=== PATIENT | male | born 1955 | race African-American/Black ===

== ENCOUNTER 2018-07-17 23:02 | Emergency (ER) | payer OTHER, MEDICARE ==
[~2018-07-17] VITALS: Ht 167.6 cm; Wt 62.1 kg
[~2018-07-17 23:02] MED LIST: FERR325T14 PO; OXYC-323 PO
[2018-07-17] MEDS ORDERED: CONTRAST GIVEN. MC PRN (23:45)
[2018-07-17 23:50] LABS: BASO % 0 % (0-3); EOS # 0.1 x10^3/uL (0.0-0.7); EOS % 2 % (0-3); HEMATOCRIT 29.1 % (39.0-53.0); HEMOGLOBIN 9.4 g/dL (13.0-17.5); LYMPH # 0.3 x10^3/uL (1.0-4.8); LYMPH % 8 % (24-48); MEAN CORPUSCULAR HEMOGLOBIN 24 pg (25-35); MEAN CORPUSCULAR HGB CONC 32 g/dL (31-37); MEAN CORPUSCULAR VOLUME 74 fL (79-100); MONO # 0.3 x10^3/uL (0.0-1.1); MONO % 7 % (0-9); NEUT # 3.7 x10^3uL (1.8-7.7); NEUT % 83 % (31-73); PLATELET COUNT 198 x10^3/uL (140-400); RED BLOOD COUNT 3.93 x10^6/uL (4.30-5.70); RED CELL DISTRIBUTION WIDTH 19.1 % (11.5-14.5); WHITE BLOOD COUNT 4.5 x10^3/uL (4.0-11.0)
[2018-07-17 23:59] LABS: PROTHROMBIN TIME PATIENT 14.8 SEC (11.7-14.0)
[2018-07-18] LABS: CALCIUM 10.1 mg/dL (8.5-10.1); CREATININE 1.1 mg/dL (0.7-1.3); GFR 81.3; POTASSIUM 3.8 mmol/L (3.5-5.1)
[2018-07-18] MEDS ORDERED: FAMOTIDINE 20 MG/2 ML VIAL IVP ONE
[2018-07-18 00:06] LABS: ALBUMIN 3.6 g/dL (3.4-5.0); ALBUMIN/GLOBULIN RATIO 0.7 (1.0-1.7); MAGNESIUM 1.7 mg/dL (1.8-2.4); TOTAL BILIRUBIN 0.4 mg/dL (0.2-1.0); TOTAL PROTEIN 8.6 g/dL (6.4-8.2)
[2018-07-18 00:21] LABS: BILIRUBIN,URINE NEGATIVE (NEG); CLARITY,URINE CLEAR; COLOR,URINE YELLOW; NITRITE,URINE NEGATIVE (NEG); PH,URINE 6.5; PROTEIN,URINE 30 mg/dL (NEG-TRACE)
[2018-07-18] MEDS ORDERED: IOHEXOL 300 MG/ML 100ML VIAL. IV ONE (00:30)
[2018-07-18] MEDS ORDERED: IOHEXOL 240 MG/ML 50ML VIAL. PO ONE (00:30)
[2018-07-18] MEDS ORDERED: IV NORMAL SALINE 1000ML BAG 1,000 ML IV ONE (00:30)
[2018-07-18 00:32] LABS: BACTERIA,URINE MODERATE /HPF (0-FEW); RBC,URINE TNTC /HPF (0-2); SQUAMOUS EPITHELIAL CELL,UR FEW /LPF
--- NOTE | 2018-07-18 00:59 | EKG ---
[facility] [address] [place] [address] Test Date: 2018-07-17 Test Time: 23:52:12 Pat Name: MILLA WRGIHT Department: Room: Gender: M [employer]: : [id number] Requested By: TON JOHNSON Order Number: [id number] Reading MD: Measurements Intervals [place] Rate: 71 P: 74 IN: 134 QRS: 5 QRSD: 84 T: 32 QT: 352 QTc: 386 Interpretive Statements SINUS RHYTHM NORMAL ECG No previous ECG available for comparison
[2018-07-18 01:19] LABS: % BANDS 1 % (0-9); % EOS 3 % (0-5); % LYMPHS 10 % (24-48); % MONOS 4 % (0-10); % SEGS 82 % (35-66)
[2018-07-18 01:20] LABS: HYPOCHROMIA SLIGHT; PLT ESTIMATE ADEQUATE (ADEQUATE)
[2018-07-18 01:21] LABS: MICROCYTOSIS MOD; POIKILOCYTOSIS SLIGHT
[2018-07-18 01:22] LABS: HELMET CELLS OCC; OVALOCYTES OCC; SCHISTOCYTES OCC; TOXIC VACUOLATION SLIGHT
--- NOTE | 2018-07-18 02:19 | RAD ---
EXAM: CT Abdomen and Pelvis with IV contrast CLINICAL HISTORY: ABDOMEN PAIN, HX OF COLON CA, RECEIVING RADIATION COMPARISON: CT abdomen 06/01/2018 TECHNIQUE: Helical CT of the abdomen and pelvis was performed following the administration of intravenous contrast. Oral contrast was administered. Axial, coronal and sagittal reformatted images were generated. PQRS compliance statement - One or more of the following individualized dose reduction techniques were utilized for this study: 1. Automated exposure control 2. Adjustment of the mA and/or kV according to patient size 3. Use of iterative reconstruction technique FINDINGS: Lower chest: Numerous lung nodules are seen in the lung bases consistent with metastatic disease. Abdomen and Pelvis: A 5 mm right hepatic lobe (series 2 image 23) hypodense lesion was not definitively seen on the prior exam, recommend close attention on follow-up. A 1 cm left hepatic lobe hypodense lesion is stable. Calcified granulomas are seen within the spleen. Adrenal glands are not well visualized given lack of adjacent mesenteric fat. The right kidney is small with moderate to large hydronephrosis and hydroureter, stable. Mild left hydronephrosis and hydroureter. The distended bladder is otherwise unremarkable. Multiple left renal cystic lesions are seen. No abnormal small or large bowel dilatation. Large volume colonic stool content is seen. A ventral abdominal ostomy is again seen. Trace presacral edema. Aorta is normal in caliber. IVC filter is seen. Evaluation for lymphadenopathy is limited given lack of visceral fat. Bones: Degenerative change of the spine are noted. Old fracture deformity of the left pubic body. IMPRESSION: 1. Changes of prior colonic resection with ostomy are seen. 2. Moderate to large volume hydronephrosis and hydroureter of the right kidney with atrophic appearance of the right kidney. 3. There is mild left hydronephrosis/hydroureter. 4. Hypodense hepatic lesions are seen, too small to accurately characterize. Recommend close attention on follow-up. 5. Evaluation for lymphadenopathy is limited given lack of visceral fat. Electronically signed by: Kian Ovalle MD (07/18/2018 2:16 AM) [facility]
[2018-07-18] MEDS ORDERED: CEPH-264 PO (02:42)
[2018-07-18] MEDS ORDERED: MAGN296S9 PO (02:42)
[2018-07-18] MEDS ORDERED: SENN-121 PO (02:42)
--- NOTE | 2018-07-18 02:42 | PHYS DOC ---
Past Medical History Past Medical History: Cancer Additional Past Medical Histor: COLON CANCER Past Surgical History: Other Additional Past Surgical Histo: COLON CANCER, BILATERAL KNEE Alcohol Use: None Drug Use: None Adult General Chief Complaint Chief Complaint: CONSTIPATION HPI HPI Patient is a 63 year old [f__sex] who presents with [] Review of Systems Review of Systems Constitutional: Denies fever or chills [] Eyes: Denies change in visual acuity, redness, or eye pain [] HENT: Denies nasal congestion or sore throat [] Respiratory: Denies cough or shortness of breath [] Cardiovascular: No additional information not addressed in HPI [] GI: Denies abdominal pain, nausea, vomiting, bloody stools or diarrhea [] : Denies dysuria or hematuria [] Musculoskeletal: Denies back pain or joint pain [] Integument: Denies rash or skin lesions [] Neurologic: Denies headache, focal weakness or sensory changes [] Endocrine: Denies polyuria or polydipsia [] All other systems were reviewed and found to be within normal limits, except as documented in this note. Current Medications Current Medications Current Medications Medications (Trade) Dose Ordered Sig/Flaco Start Time Stop Time Status Last Admin Dose Admin Ceftriaxone Sodium 50 ml @ 100 mls/hr 1X ONCE 07/18/18 02:00 07/18/18 02:29 DC 07/18/18 02:08 100 MLS/HR Famotidine (Pepcid Vial) 20 mg 1X ONCE 07/18/18 00:00 07/18/18 00:01 DC 07/18/18 00:08 20 MG Info (CONTRAST GIVEN -- Rx MONITORING) 1 each PRN DAILY PRN 07/17/18 23:45 07/19/18 23:44 Iohexol (Omnipaque 240 Mg/ml) 50 ml 1X ONCE 07/18/18 00:30 07/18/18 00:31 DC 07/18/18 01:01 50 ML Iohexol (Omnipaque 300 Mg/ml) 75 ml 1X ONCE 07/18/18 00:30 07/18/18 00:31 DC 07/18/18 01:01 75 ML Sodium Chloride 1,000 ml @ 1,000 mls/hr 1X ONCE 07/18/18 00:30 07/18/18 01:29 DC 07/18/18 00:08 1,000 MLS/HR Allergies Allergies Allergies Coded Allergies Type Severity Reaction Last Updated Verified No Known Drug Allergies 07/17/18 No Physical Exam Physical Exam Constitutional: Well developed, well nourished, no acute distress, non-toxic appearance. [] HENT: Normocephalic, atraumatic, bilateral external ears normal, oropharynx moist, no oral exudates, nose normal. [] Eyes: PERRLA, EOMI, conjunctiva normal, no discharge. [] Neck: Normal range of motion, no tenderness, supple, no stridor. [] Cardiovascular:Heart rate regular rhythm, no murmur [] Lungs & Thorax: Bilateral breath sounds clear to auscultation [] Abdomen: Bowel sounds normal, soft, no tenderness, no masses, no pulsatile masses. [] Skin: Warm, dry, no erythema, no rash. [] Back: No tenderness, no CVA tenderness. [] Extremities: No tenderness, no cyanosis, no clubbing, ROM intact, no edema. [] Neurologic: Alert and oriented X 3, normal motor function, normal sensory function, no focal deficits noted. [] Psychologic: Affect normal, judgement normal, mood normal. [] Current Patient Data Vital Signs Vital Signs Date Time Temp Pulse Resp B/P (MAP) Pulse Ox O2 Delivery O2 Flow Rate FiO2 07/17/18 23:18 98.3 82 16 174/73 (106) 99 Room Air 98.3 Lab Values Laboratory Tests Test 07/17/18 23:34 07/18/18 00:05 White Blood Count 4.5 x10^3/uL (4.0-11.0) Red Blood Count 3.93 x10^6/uL (4.30-5.70) L Hemoglobin 9.4 g/dL (13.0-17.5) L Hematocrit 29.1 % (39.0-53.0) L Mean Corpuscular Volume 74 fL (79-100) L Mean Corpuscular Hemoglobin 24 pg (25-35) L Mean Corpuscular Hemoglobin Concent 32 g/dL (31-37) Red Cell Distribution Width 19.1 % (11.5-14.5) H Platelet Count 198 x10^3/uL (140-400) Neutrophils (%) (Auto) 83 % (31-73) H Lymphocytes (%) (Auto) 8 % (24-48) L Monocytes (%) (Auto) 7 % (0-9) Eosinophils (%) (Auto) 2 % (0-3) Basophils (%) (Auto) 0 % (0-3) Neutrophils # (Auto) 3.7 x10^3uL (1.8-7.7) Lymphocytes # (Auto) 0.3 x10^3/uL (1.0-4.8) L Monocytes # (Auto) 0.3 x10^3/uL (0.0-1.1) Eosinophils # (Auto) 0.1 x10^3/uL (0.0-0.7) Basophils # (Auto) 0.0 x10^3/uL (0.0-0.2) Segmented Neutrophils % 82 % (35-66) H Band Neutrophils % 1 % (0-9) Lymphocytes % 10 % (24-48) L Monocytes % 4 % (0-10) Eosinophils % 3 % (0-5) Toxic Vacuolation Slight Platelet Estimate Adequate (ADEQUATE) Hypochromasia Slight Poikilocytosis Slight Microcytosis Mod Ovalocytes Occ Helmet Cells Occ Schistocytes Occ Prothrombin Time 14.8 SEC (11.7-14.0) H Prothrombin Time INR 1.2 (0.8-1.1) H PTT 39 SEC (24-38) H Sodium Level 140 mmol/L (136-145) Potassium Level 3.8 mmol/L (3.5-5.1) Chloride Level 100 mmol/L (98-107) Carbon Dioxide Level 31 mmol/L (21-32) Anion Gap 9 (6-14) Blood Urea Nitrogen 16 mg/dL (8-26) Creatinine 1.1 mg/dL (0.7-1.3) Estimated GFR (Cockcroft-Gault) 81.3 BUN/Creatinine Ratio 15 (6-20) Glucose Level 118 mg/dL (70-99) H Calcium Level 10.1 mg/dL (8.5-10.1) Magnesium Level 1.7 mg/dL (1.8-2.4) L Total Bilirubin 0.4 mg/dL (0.2-1.0) Aspartate Amino Transferase (AST) 24 U/L (15-37) Alanine Aminotransferase (ALT) 20 U/L (16-63) Alkaline Phosphatase 64 U/L (46-116) Creatine Kinase 146 U/L (39-308) Creatine Kinase MB (Mass) 0.8 ng/mL (0.0-3.6) Creatine Kinase MB Relative Index 0.5 % (0-4) Troponin I Quantitative < 0.017 ng/mL (0.000-0.055) Total Protein 8.6 g/dL (6.4-8.2) H Albumin 3.6 g/dL (3.4-5.0) Albumin/Globulin Ratio 0.7 (1.0-1.7) L Lipase 163 U/L (73-393) Urine Collection Type Unknown Urine Color Yellow Urine Clarity Clear Urine pH 6.5 Urine Specific [place] 1.020 Urine Protein 30 mg/dL (NEG-TRACE) Urine Glucose (UA) Negative mg/dL (NEG) Urine Ketones (Stick) Negative mg/dL (NEG) Urine Blood Large (NEG) Urine Nitrite Negative (NEG) Urine Bilirubin Negative (NEG) Urine Urobilinogen Dipstick 1.0 mg/dL (0.2 mg/dL) Urine Leukocyte Esterase Moderate (NEG) Urine RBC Tntc /HPF (0-2) Urine WBC 11-20 /HPF (0-4) Urine Squamous Epithelial Cells Few /LPF Urine Bacteria Moderate /HPF (0-FEW) Laboratory Tests 07/17/18 23:34 Laboratory Tests 07/17/18 23:34 EKG EKG @2352 NSR at 71bpm, No ST elevation Radiology/Procedures Radiology/Procedures PROCEDURE: CT ABD PELV W/ORAL&IV CONTRAST EXAM: CT Abdomen and Pelvis with IV contrast CLINICAL HISTORY: ABDOMEN PAIN, HX OF COLON CA, RECEIVING RADIATION COMPARISON: CT abdomen 06/01/2018 TECHNIQUE: Helical CT of the abdomen and pelvis was performed following the administration of intravenous contrast. Oral contrast was administered. Axial, coronal and sagittal reformatted images were generated. PQRS compliance statement - One or more of the following individualized dose reduction techniques were utilized for this study: 1. Automated exposure control 2. Adjustment of the mA and/or kV according to patient size 3. Use of iterative reconstruction technique FINDINGS: Lower chest: Numerous lung nodules are seen in the lung bases consistent with metastatic disease. Abdomen and Pelvis: A 5 mm right hepatic lobe (series 2 image 23) hypodense lesion was not definitively seen on the prior exam, recommend close attention on follow-up. A 1 cm left hepatic lobe hypodense lesion is stable. Calcified granulomas are seen within the spleen. Adrenal glands are not well visualized given lack of adjacent mesenteric fat. The right kidney is small with moderate to large hydronephrosis and hydroureter, stable. Mild left hydronephrosis and hydroureter. The distended bladder is otherwise unremarkable. Multiple left renal cystic lesions are seen. No abnormal small or large bowel dilatation. Large volume colonic stool content is seen. A ventral abdominal ostomy is again seen. Trace presacral edema. Aorta is normal in caliber. IVC filter is seen. Evaluation for lymphadenopathy is limited given lack of visceral fat. Bones: Degenerative change of the spine are noted. Old fracture deformity of the left pubic body. IMPRESSION: 1. Changes of prior colonic resection with ostomy are seen. 2. Moderate to large volume hydronephrosis and hydroureter of the right kidney with atrophic appearance of the right kidney. 3. There is mild left hydronephrosis/hydroureter. 4. Hypodense hepatic lesions are seen, too small to accurately characterize. Recommend close attention on follow-up. 5. Evaluation for lymphadenopathy is limited given lack of visceral fat. Electronically signed by: Kian Ovalle MD (07/18/2018 2:16 AM) [facility] Course & Med Decision Making Course & Med Decision Making Pertinent Labs and Imaging studies reviewed. (See chart for details) [] Dragon Disclaimer Dragon Disclaimer This electronic medical record was generated, in whole or in part, using a voice recognition dictation system. Departure Departure Impression: Primary Impression: Constipation Additional Impression: Acute UTI Disposition: 01 HOME, SELF-CARE Condition: STABLE Referrals: DARION RIVERA MD (PCP) Patient Instructions: Constipation, Adult, [id number], Urinary Tract Infection, [id number] Scripts Magnesium Citrate (MAGNESIUM CITRATE) 296 Ml Solution 296 ML PO ONCE PRN for CONSTIPATION, #296 ML Prov: TON JOHNSON DO 07/18/18 Sennosides/Docusate Sodium (Colace 2-in-1 Tablet) 1 Each Tablet 1 EACH PO QHS PRN for CONSTIPATION, #20 TAB Prov: TON JOHNSON DO 07/18/18 Cephalexin (KEFLEX) 500 Mg Capsule 500 MG PO TID for 7 Days, #21 CAP Prov: TON JOHNSON DO 07/18/18 Problem Qualifiers Primary Impression: Constipation Constipation type: unspecified constipation type Qualified Codes: K59.00 - Constipation, unspecified TON JOHNSON DO Jul 18, 2018 02:42
[2018-07-18 02:45] VITALS: BP 148/79
== END 2018-07-18 02:59 | disposition home or self-care (01) ==
LOC: ER 23:02
DX: K59.00 Constipation, unspecified (principal); N39.0 Urinary tract infection, site not specified
CPT/HCPCS: 36415; 74177; 80053; 81001; 82553; 83690; 83735; 84484; 85007; 85025; 85610; 85730; 87086; 93005; 96365; 96375; 99285; J0690; J3490; J7030; Q9966; Q9967

== ENCOUNTER → 2018-08-17 | Outpatient (CLI) | payer OTHER, MEDICARE ==
[2018-07-18 02:45] VITALS: BP 148/79
[~2018-08-17] MED LIST changes: +CEPH-264 PO; +MAGN296S9 PO; +SENN-121 PO
--- NOTE | 2018-08-18 12:39 | RAD ---
Whole body bone scan HISTORY: Colon cancer diagnosed 2011 COMPARISON: There is no previous similar exam available, correlation made with CT abdomen pelvis exam July 18, 2018 and chest CTA May 26, 2018 FINDINGS: Whole-body bone scan was performed. Patient was injected with 25.5 mCi of technetium 99 m MDP. There is a small focus of asymmetric radiotracer activity of the left superior abdomen more likely associated with radiotracer accumulation in left renal calyx rather than associated with the left 11th or 12th ribs. There is no corresponding lesion identified of the left 11th and 12th ribs on CT. There is other radiotracer activity in a bilateral distribution such as the shoulders, elbows, knees, ankles in a pattern compatible with degenerative change. IMPRESSION: 1. There is no radiotracer activity in a pattern suggestive of osseous metastatic disease. Small focus of asymmetric radiotracer activity in the superior superior abdomen is favored to be related to radiotracer accumulation in superior left renal calyx. Electronically signed by: Devin Moore MD (08/18/2018 12:35 PM) [id number]
== END | disposition home or self-care (01) ==
LOC: NM 08:31
PROVIDERS: ATTEND Internal Medicine Hematology & Oncology
DX: C17.9 Malignant neoplasm of small intestine, unspecified (principal)
CPT/HCPCS: 78306; 96374; A9503